=== PATIENT | female | born 1965 | race Caucasian/White ===

== ENCOUNTER 2021-04-01 18:24 | Emergency (ER) | payer MEDICARE ==
[~2021-04-01 18:24] MED LIST: BACTROBAN OINT22 GM EXT
== END 2021-04-01 20:15 | disposition home or self-care (01) ==
LOC: ER1 18:24
DX: S61.211A Laceration without foreign body of left index finger without damage to nail, initial encounter (principal); I10 Essential (primary) hypertension; Z86.16 Personal history of COVID-19; Z90.49 Acquired absence of other specified parts of digestive tract; W26.8XXA Contact with other sharp object(s), not elsewhere classified, initial encounter; Z90.89 Acquired absence of other organs
CPT/HCPCS: 99283

== ENCOUNTER 2022-02-13 17:38 | Emergency (ER) | payer MEDICARE ==
[2022-02-13] MEDS ORDERED: IBUPROFEN600 MG PO (19:37)
== END 2022-02-13 20:12 | disposition home or self-care (01) ==
LOC: ER1 17:38
DX: M25.511 Pain in right shoulder (principal); I10 Essential (primary) hypertension; Z90.49 Acquired absence of other specified parts of digestive tract; Z90.89 Acquired absence of other organs
CPT/HCPCS: 73030; 99283